=== PATIENT | female | born 1975 | race Caucasian/White ===

== ENCOUNTER → 2022-03-04 | Outpatient (CLI) | payer OTHER ==
--- NOTE | 2022-03-04 14:00 | Diagnostic Imaging Report ---
PROCEDURE: Pelvic comp/transvaginal sonogram. TECHNIQUE: Complete transabdominal and transvaginal pelvic ultrasound was performed. In addition, limited pelvic Doppler was performed. INDICATION: Menorrhagia. Uterus is retroverted measuring 7.2 x 4.7 x 6.2 cm. Endometrium is 5 mm in thickness. There is some myometrial heterogeneity in the anterior fundus measuring 2.0 x 1.4 x 1.5 cm. This may represent a fibroid. No other myometrial masses are detected. Right ovary measures 2.8 x 2.3 x 2.8 cm and the left ovary measures 3.0 x 2.1 x 1.4 cm. Right ovary does contain a 17 mm cyst. There is blood flow to both ovaries. No significant free fluid is detected. IMPRESSION: 1. Probable anterior fibroid. 2. 17 mm right ovarian cyst. Dictated by: Dictated on workstation # [id number]
--- NOTE | 2022-03-04 16:20 | Diagnostic Imaging Report ---
INDICATION: Routine screening. COMPARISON: No prior mammograms are available for comparison. This is a baseline study. TECHNIQUE: 2D and 3D bilateral screening mammography was performed with CAD. FINDINGS: Both breasts demonstrate marked parenchymal density and heterogeneity, limiting the sensitivity of mammography. There are numerous microcalcifications throughout both breasts limiting evaluation. No mass is identified. The axillae are unremarkable. IMPRESSION: No mammographic features suspicious for malignancy are identified. ACR BI-RADS Category 2: Benign findings. Result letter will be mailed to the patient. Note: At least 10% of breast cancer is not imaged by mammography. Dictated by: Dictated on workstation # [id number]
== END ==
LOC: RAD 12:45
PROVIDERS: ATTEND Obstetrics & Gynecology
DX: Z12.31 Encounter for screening mammogram for malignant neoplasm of breast (principal); N83.201 Unspecified ovarian cyst, right side
CPT/HCPCS: 76830; 76856; 77063; 77067

== ENCOUNTER 2022-11-16 11:46 | Emergency (ER) | payer OTHER ==
[~2022-11-16] VITALS: Ht 160 cm; Wt 59.0 kg
[2022-11-16] MEDS ORDERED: LORazepam INJ 2 MG/ML (ATIVAN) VIAL IVP ONE (12:30)
[2022-11-16] MEDS ORDERED: KETOROLAC 15 MG/ML VIAL IVP ONE (12:30)
[2022-11-16] MEDS ORDERED: METOCLOPRAMIDE INJ 10 MG/2 ML (REGLAN) IVP ONE (12:30)
[2022-11-16] MEDS ORDERED: diphenhydrAMINE 50 MG/ML INJ (BENADRYL) IVP ONE (12:30)
[2022-11-16] MEDS ORDERED: NS IV 1000 ML 1,000 ML IV SCH (12:30)
[2022-11-16] MEDS ORDERED: LORazepam 0.5 MG (ATIVAN) TABLET PO STA (12:30)
--- NOTE | 2022-11-16 12:30 | ED Headache ---
General Chief Complaint: Head/Cervical Problems Stated Complaint: HEADACHE - ANXIETY Nursing Triage Note: PT PRESENTS TO ED WITH C/O OCCULAR MIGRAINE AND NAUSEA THAT BEGAN THIS MORNING. PT TOOK SUMATRIPTAN- HER FIRST TIME TAKING IT- AND DEVELOPED AN ANXIETY/PANIC ATTACK. PT WANTED TO SLEEP OFF SYMPTOMS, SO SHE ALSO TOOK Z-QUIL. Source: patient Exam Limitations: no limitations History of Present Illness Date Seen by Provider: Nov 16, 2022 Time Seen by Provider: 11:55 Initial Comments 47-year-old female presents to the ED for complaints of a migraine that started this morning upon awakening. She reports that she took a sumatriptan which then caused her to have an anxiety attack. Reports this is the first time she has taken sumatriptan. She states she gets migraines infrequently, approximately every 2 to 3 years. Reports that she has had worse headaches in the past. Denies any worsening pain from light or sound. No nuchal rigidity. She has had anxiety attacks in the past. Has Ativan as needed for this. She came in because this is the first time she has had a migraine and anxiety at the same time. She was not sure if she could take her Ativan with the sumatriptan, so she did not take it. Reports she did take a Benadryl this morning. States she still having a migraine and she is still anxious. Denies fevers, chest pain, abdominal pain. Reports nausea and vomiting. Allergies and Home Medications Allergies Coded Allergies: No Known Drug Allergies (Unverified , 11/16/22) Patient Home Medication List Home Medication List Reviewed: Yes Review of Systems Review of Systems Constitutional: see HPI Past [id number] Hx Patient Social History Tobacco Use?: No Substance use?: No Alcohol Use?: No Pt feels they are or have been: No Immunizations Up To Date Influenza Vaccine Up-to-Date: No; Not Current Physical Exam Vital Signs Vital Signs - First Documented 11/16/22 11/16/22 11:52 13:40 Temp 36.6 Pulse 100 Resp 20 B/P (MAP) 132/90 (104) Pulse Ox 100 O2 Delivery Room Air Capillary Refill : Less Than 3 Seconds Height, Weight, BMI Height: '" Weight: lbs. oz. kg; 23.00 BMI Method: General Appearance: WD/WN, no apparent distress HEENT: TMs normal, pharynx normal Neck: full range of motion, supple, normal inspection Cardiovascular: regular rate, rhythm, no edema, no gallop, no JVD, no murmur Respiratory: lungs clear, normal breath sounds, no respiratory distress, no accessory muscle use Extremities: normal range of motion, normal inspection Psychiatric: alert Crainal Nerves: normal hearing, normal speech, PERRL, other (Cranial nerves II through XII intact) Coordination/Gait: normal finger to nose, normal gait Motor/Sensory: no motor deficit, no sensory deficit Skin: normal color, warm/dry Progress/Results/Core Measures Results/Orders My Orders Orders - GORDON WEBB APRN Ed Iv/Invasive Line Start (11/16/22 12:16) Ns Iv 1000 Ml (Sodium Chloride 0.9%) (11/16/22 12:30) Diphenhydramine Injection (Benadryl Inje (11/16/22 12:30) Metoclopramide Injection (Reglan Injecti (11/16/22 12:30) Ketorolac Injection (Toradol Injection) (11/16/22 12:30) Lorazepam Tablet (Ativan Tablet) (11/16/22 12:30) Medications Given in ED Current Medications Medications Dose Ordered Sig/Juan Route Start Time Stop Time Status Last Admin Dose Admin Diphenhydramine HCl 25 mg ONCE ONCE IVP 11/16/22 12:30 11/16/22 12:31 DC 11/16/22 12:33 50 MG Ketorolac Tromethamine 15 mg ONCE ONCE IVP 11/16/22 12:30 11/16/22 12:31 DC 11/16/22 12:33 15 MG Metoclopramide HCl 5 mg ONCE ONCE IVP 11/16/22 12:30 11/16/22 12:31 DC 11/16/22 12:33 5 MG Vital Signs/I&O 11/16/22 11/16/22 11:52 13:40 Temp 36.6 Pulse 100 84 Resp 20 18 B/P (MAP) 132/90 (104) 109/69 Pulse Ox 100 100 O2 Delivery Room Air Blood Pressure Mean: 104 Progress Progress Note : Time: 12:28 Progress Note Patient seen and evaluated, resting comfortably in bed, no acute distress. Based on exam and symptoms, differential diagnosis includes but is not limited to intracranial hemorrhage, meningitis, migraine. I do not believe this is an intracranial hemorrhage or meningitis. This is not the worst headache of her life. She has no nuchal rigidity. We will treat for migraine and anxiety. IV fluids, IV Benadryl, IV Toradol, and IV Reglan ordered. Patient's home dose of oral Ativan ordered. 1327 patient reevaluated, states her headache is much better. She states she is ready to go home. Will allow her to finish the IV fluids. Discharge instructions and return precautions provided. Departure Impression Primary Impression: Migraine Additional Impression: Anxiety Disposition: 01 HOME, SELF-CARE Condition: Stable Departure-Patient Inst. Decision time for Depature: 13:28 Referrals: RADHA ELIZALDE MD (PCP/Family) Primary Care Physician Patient Instructions: Migraines (DC) Add. Discharge Instructions: Follow-up with your primary care provider. Return for worsening or uncontrolled pain, vision changes, recurrent vomiting, difficulty with normal activities, abnormal behavior, difficulty walking, numbness, weakness, or any other new, concerning, or worsening symptoms. All discharge instructions reviewed with patient and/or family. Voiced understanding. GORDON WEBB CONTRACT ACCOUNTANT Nov 16, 2022 12:29
[2022-11-16 13:40] VITALS: BP 109/69
== END 2022-11-16 13:41 | disposition home or self-care (01) ==
LOC: EDUNIT# 11:46 → ER 11:48
DX: G43.909 Migraine, unspecified, not intractable, without status migrainosus (principal); F41.9 Anxiety disorder, unspecified; Z28.310 Unvaccinated for COVID-19

== ENCOUNTER 2022-12-09 10:04 | Outpatient (RCR) | payer OTHER ==
[2022-12-02 10:05] VITALS: BP 111/78
[2022-12-02] MEDS: IRON SUCROSE 200 MG/10 ML (VENOFER) VIAL IV SCH (10:39)
[~2022-12-09] VITALS: Ht 160 cm; Wt 59.0 kg
[2022-12-09] MEDS: IRON SUCROSE 200 MG/10 ML (VENOFER) VIAL IV SCH (10:20)
[2022-12-09 10:21] VITALS: BP 111/78
== END 2022-12-14 | disposition home or self-care (01) ==
LOC: SDC 10:04
PROVIDERS: ATTEND Family Medicine
DX: D50.8 Other iron deficiency anemias (principal)
CPT/HCPCS: 96365

== ENCOUNTER 2022-12-23 09:52 | Outpatient (RCR) | payer OTHER ==
[2022-12-16 10:20] VITALS: BP 109/76
[2022-12-23] MEDS ORDERED: IRON SUCROSE 200 MG/10 ML (VENOFER) VIAL IV SCH (10:00)
[2022-12-23 10:23] VITALS: BP 116/71
== END 2023-01-14 | disposition home or self-care (01) ==
LOC: SDC 09:52
PROVIDERS: ATTEND Family Medicine
DX: D50.8 Other iron deficiency anemias (principal); R53.83 Other fatigue
CPT/HCPCS: 96365